=== PATIENT | female | born 1940 | race Hispanic/Latino ===

== ENCOUNTER 2017-06-01 13:27 | Emergency (ER) | payer MEDICARE ==
[2017-06-01 14:02] VITALS: TEMP 98.9
--- NOTE | 2017-06-01 14:43 | ED PDOC ---
Arrival/HPI - General Chief Complaint: Syncope Time Seen by Provider: 06/01/17 13:32 Historian: Patient, Family (daughter) - History of Present Illness Narrative History of Present Illness (Text): 06/01/17 14:50 A 77 year old female, whose denies any past medical history, presents to the emergency department for evaluation of dizziness, lightheadedness and headache s /p syncopal episodes and falls. Patient saw PMD and was advised to come to the emergency department for further evaluation. Patient's daughter reports patient had one syncopal episode three days ago, loss of consciousness for a few seconds and fell hitting the left side of her head on a cabinet. Patient also had a syncopal episode yesterday, loss of consciousness for a few seconds, was leaning to her side, was assisted with her son, but fell on the floor on her back. Patient doesn't recall syncopal episodes. Patient is able to ambulate. Patient notes to taking Tylenol for headache, which is currently resolved. Reports back pain for the past three days. Denies smoking or drinking alcohol. Patient denies any chest pain, shortness of breath or any other complaints at this time. PMD: Dr. Nettles Symptom Onset: Sudden Symptom Course: Unchanged Activities at Onset: Rest Context: Home Past Medical History - Provider Review Nursing Documentation Reviewed: Yes - Cardiac Hx Pacemaker: No - Neurological Hx Paralysis: No - Hematological/Oncological Hx Blood Transfusions: No Hx Blood Transfusion Reaction: No - Musculoskeletal/Rheumatological Hx Musculoskeletal Disorders: No - Psychiatric Hx Psychophysiologic Disorder: No Hx Emotional Abuse: No Hx Physical Abuse: No Hx Substance Use: No - Surgical History Other/Comment: SPINAL - Anesthesia Hx Anesthesia Reactions: No Hx Malignant Hyperthermia: No - Suicidal Assessment Feels Threatened In Home Enviroment: No Family/Social History - Physician Review Nursing Documentation Reviewed: Yes Family/Social History: No Known Family HX Smoking Status: Never Smoked Hx Alcohol Use: No Hx Substance Use: No Allergies/Home Meds Allergies/Adverse Reactions: Allergies No Known Allergies Allergy (Verified 06/01/17 13:49) Home Medications: Home Meds Medication Instructions Recorded Confirmed No Known Home Med 09/22/11 06/01/17 Review of Systems - Physician Review All systems were reviewed & negative as marked: Yes - Review of Systems Constitutional: Other (lightheadedness) Respiratory: absent: SOB Cardiovascular: Syncope. absent: Chest Pain Musculoskeletal: Back Pain Neurological: Headache (resolved), Dizziness Physical Exam Vital Signs Reviewed: Yes Vital Signs Temp Pulse Resp BP Pulse Ox 06/01/17 16:21 81 18 128/80 97 06/01/17 13:56 98.9 F 85 16 155/74 H 95 Temperature: Afebrile Blood Pressure: Normal Pulse: Regular Respiratory Rate: Normal Appearance: Positive for: Well-Appearing, Non-Toxic, Comfortable Pain Distress: None Mental Status: Positive for: Alert and Oriented X 3 Finger Stick Blood Glucose: 79 - Systems Exam Head: Present: Atraumatic, Normocephalic Pupils: Present: PERRL Extroacular Muscles: Present: EOMI Conjunctiva: Present: Normal Mouth: Present: Moist Mucous Membranes Neck: Present: Normal Range of Motion Respiratory/Chest: Present: Clear to Auscultation, Good Air Exchange. No: Respiratory Distress, Accessory Muscle Use Cardiovascular: Present: Regular Rate and Rhythm, Normal S1, S2. No: Murmurs Abdomen: Present: Normal Bowel Sounds. No: Tenderness, Distention, Peritoneal Signs Back: Present: Normal Inspection Upper Extremity: Present: Normal Inspection. No: Cyanosis, Edema Lower Extremity: Present: Normal Inspection, Neurovascularly Intact. No: Edema Neurological: Present: GCS=15, CN II-XII Intact, Speech Normal, Motor Func Grossly Intact, Normal Sensory Function, Gait Normal, Other (patient is ambulating without difficulty, no drift of upper extremities; reflexes and sensations normal) Skin: Present: Warm, Dry, Normal Color. No: Rashes Psychiatric: Present: Alert, Oriented x 3, Normal Concentration, Anxious Medical Decision Making ED Course and Treatment: 06/01/17 14:40 Impression: A 77 year old female with dizziness, lightheadedness, headache s/p syncopal episodes and falls. Plan: -- EKG -- CT head -- labs -- Reassess and disposition Progress Notes: 06/01/17 14:55 Patient is refusing blood work despite recommendation. - Lab Interpretations Lab Results: 06/01/17 15:40 06/01/17 15:40 Lab Results 06/01/17 15:40: Sodium 147, Potassium 3.7, Chloride 104, Carbon Dioxide 29, Anion Gap 18, BUN 8, Creatinine 0.5 L, Est GFR ( Amer) > 60, Est GFR (Non -Af Amer) > 60, Random Glucose 81, Calcium 9.7, Magnesium 1.7, Total Bilirubin 0.1 L, AST 48 H, ALT 32, Alkaline Phosphatase 67, Troponin I < 0.01, Total Protein 7.8, Albumin 4.6, Globulin 3.2, Albumin/Globulin Ratio 1.4 06/01/17 15:40: WBC 6.5, RBC 3.90, Hgb 12.3, Hct 37.0, MCV 94.9, MCH 31.5, MCHC 33.2, RDW 13.6, Plt Count 258, MPV 9.6, Gran % 66.2, Lymph % (Auto) 26.9, Andrew % (Auto) 4.1, Eos % (Auto) 2.3, Baso % (Auto) 0.5, Gran # 4.33, Lymph # (Auto) 1.8, Andrew # (Auto) 0.3, Eos # (Auto) 0.2, Baso # (Auto) 0.03 06/01/17 14:02: POC Glucose (mg/dL) 79 I have reviewed the lab results: Yes - RAD Interpretation Radiology Orders: 06/01/17 14:23 HEAD W/O CONTRAST [CT] Stat - EKG Interpretation Interpreted by ED Physician: Yes Type: 12 lead EKG - Scribe Statement The provider has reviewed the documentation as recorded by the Alvaro Kearney Provider Scribe Attestation: All medical record entries made by the Scribe were at my direction and personally dictated by me. I have reviewed the chart and agree that the record accurately reflects my personal performance of the history, physical exam, medical decision making, and the department course for this patient. I have also personally directed, reviewed, and agree with the discharge instructions and disposition. Disposition/Present on Arrival - Present on Arrival Any Indicators Present on Arrival: No History of DVT/PE: No History of Uncontrolled Diabetes: No Urinary Catheter: No History of Decub. Ulcer: No History Surgical Site Infection Following: None - Disposition Have Diagnosis and Disposition been Completed?: No Diagnosis: Fainting Disposition: HOME/ ROUTINE Disposition Time: 17:15 Patient Plan: Discharge Condition: STABLE Discharge Instructions (ExitCare): Syncope (ED) Referrals: Donnie Nettles MD [Primary Care Provider] - Follow up with primary Forms: [employer] (Irish)
--- NOTE | 2017-06-01 15:20 | CT ---
PROCEDURE: CT HEAD WITHOUT CONTRAST. HISTORY: trauma-left COMPARISON: None available. TECHNIQUE: Axial computed tomography images were obtained through the head/brain without intravenous contrast. Radiation dose: Total exam DLP = 956.00 mGy-cm. This CT exam was performed using one or more of the following dose reduction techniques: Automated exposure control, adjustment of the mA and/or kV according to patient size, and/or use of iterative reconstruction technique. FINDINGS: HEMORRHAGE: No intracranial hemorrhage. BRAIN: Good corticomedullary differentiation is seen. Minimal but diffuse expansion of the ventriculosulcal and cisternal spaces is appreciated with trace white matter lucency compatible with diffuse cerebral atrophy and chronic microangiopathy. No suspicious extra-axial fluid collection is identified and the midline brain anatomy appears grossly nonfocal as imaged. There is no mass effect throughout. VENTRICLES: Unremarkable. No hydrocephalus. CALVARIUM: Unremarkable. PARANASAL SINUSES: Unremarkable as visualized. No significant inflammatory changes. MASTOID AIR CELLS: Unremarkable as visualized. No inflammatory changes. OTHER FINDINGS: None. IMPRESSION: Limited age-related neuro degenerative changes are appreciated with no definitive acute intracranial findings as discussed above. Follow-up CT or MRI are available as clinically warranted.
[2017-06-01 16:01] LABS: BASO # 0.03 K/mm3 (0.0-2.0); BASO % 0.5 % (0.0-3.0); EOS # 0.2 (0.0-0.7); EOS % 2.3 % (1.5-5.0); GRAN # 4.33 (1.4-6.5); GRAN % 66.2 % (50.0-68.0); HEMOGLOBIN 12.3 g/dL (12.0-16.0); LYMPH # 1.8 (1.2-3.4); LYMPH % 26.9 % (22.0-35.0); MEAN CELL VOLUME 94.9 fl (80.0-105.0); MEAN CORPUSCULAR HEMOGLOBIN 31.5 pg (25.0-35.0); MEAN CORPUSCULAR HGB CONC 33.2 g/dl (31.0-37.0); MEAN PLATELET VOLUME 9.6 fl (7.0-11.0); MONO # 0.3 (0.1-0.6); MONO % 4.1 % (1.0-6.0); RBC 3.9 10^6/uL (3.5-6.1); RED CELL DISTRIBUTION WIDTH 13.6 % (11.5-14.5); WHITE BLOOD COUNT 6.5 10^3/ul (4.5-11.0)
[2017-06-01 16:12] LABS: ALB/GLOB RATIO 1.4 (1.1-1.8); ALBUMIN 4.6 g/dL (3.0-4.8); ALT/SGPT 32 U/L (7-56); AST/SGOT 48 U/L (14-36); BLOOD UREA NITROGEN 8 mg/dL (7-21); CALCIUM 9.7 mg/dL (8.4-10.5); GFR AFRICAN-AMERICAN > 60; GFR NON-AFRICAN AMERICAN > 60; MAGNESIUM 1.7 mg/dL (1.7-2.2)
[2017-06-01 16:22] VITALS: BP 128/80; PULSE 81; RESP 18; O2SAT 97
[2017-06-01 16:24] LABS: TROPONIN I < 0.01 ng/mL
--- NOTE | 2017-06-02 10:15 | CARD ---
APPROVED REPORT EKG Measurement Heart [id number] <Conclusion> Sinus rhythm with occasional premature ventricular complex Otherwise normal ECG
== END 2017-06-01 17:20 | disposition home or self-care (01) ==
LOC: ED 13:27
DX: R55 Syncope and collapse (principal)